=== PATIENT | male | born 1970 | race Caucasian/White ===

== ENCOUNTER 2017-02-16 20:52 | Emergency (ER) | payer SELFPAY ==
[~2017-02-16] VITALS: Ht 177.8 cm; Wt 113.4 kg
[2017-02-16 21:04] VITALS: BP 127/81
[2017-02-16 22:39] LABS: HEMATOCRIT 44.1 % (38.0-50.0); HEMOGLOBIN 14.9 G/DL (12.5-16.6); MCH 29.7 PG (29.0-34.0); MCHC 33.8 G/DL (30.0-36.0); PLATELET COUNT 163 K/uL (156-360); RBC DIS.WIDTH-CV 12.8 % (11.8-14.6); RBC DIS.WIDTH-SD 41.1 % (39-53); RED BLOOD COUNT 5.01 M/uL (4.00-5.50); WHITE BLOOD COUNT 8.3 K/uL (4.1-10.2)
[2017-02-16 22:53] LABS: CHLORIDE 104 mEq/L (99-109); POTASSIUM 3.8 mEq/L (3.7-5.4); SODIUM 139 mEq/L (136-147)
[2017-02-16 22:55] LABS: GLUCOSE 110 mg/dL (70-99)
[2017-02-16 22:58] LABS: CREATININE 1.1 mg/dL (0.6-1.3)
[2017-02-16 22:59] LABS: UREA NITROGEN (BUN) 19 mg/dL (9-23)
[2017-02-16 23:19] LABS: GFR ESTIMATE (CALCULATED) > 59 mL/min/ (58.99-99999)
== END 2017-02-17 01:03 | disposition left against medical advice (07) ==
LOC: EME 20:52
DX: K62.5 Hemorrhage of anus and rectum (principal); K64.8 Other hemorrhoids; F17.200 Nicotine dependence, unspecified, uncomplicated; Z53.20 Procedure and treatment not carried out because of patient's decision for unspecified reasons
CPT/HCPCS: 80048; 85027; 86850; 86900; 86901; 99281; 99283